=== PATIENT | male | born 1990 | race Caucasian/White ===

== ENCOUNTER 2018-05-25 17:27 | Emergency (ER) | payer OTHER ==
[~2018-05-25] VITALS: Ht 175.3 cm; Wt 86.2 kg
[~2018-05-25 17:27] MED LIST: NABUMETONE750 MG PO
[2018-05-25] MEDS ORDERED: METOPROLOL SUCC25 MG PO (17:51)
== END 2018-05-25 18:51 | disposition home or self-care (01) ==
LOC: ER 17:27
DX: M54.5 Low back pain (principal)